=== PATIENT | male | born 1995 | race Caucasian/White ===

== ENCOUNTER 2019-09-24 12:10 | Day surgery (SDC) | payer OTHER ==
[~2019-09-24] VITALS: Ht 167.6 cm; Wt 76.6 kg
[2019-09-24 12:33] VITALS: BP 130/74; PULSE 72; TEMP 98
[2019-09-24 15:30] VITALS: BP 117/57; PULSE 74
--- NOTE | 2019-09-24 15:30 | NUR ---
Patient returns to room 7 per cart from PACU accompanied by Mercedes PHILLIP and is awake and alert. IV fluids infusing and site is free of redness. Temp 98.2 and room air sats 98%. Assisted up to the bathroom and gait steady.
[2019-09-24 15:45] VITALS: BP 115/63; PULSE 71
--- NOTE | 2019-09-24 15:45 | NUR ---
Patient returns to room after voiding bloody urine. States that it was more blood than urine. Resting on cart and IV fluids infusing at 150cc/hr. Eating muffin and drinking water. Friend in room.
[2019-09-24 15:53] VITALS: TEMP 97.1
[2019-09-24 16:00] VITALS: BP 123/58; PULSE 74
--- NOTE | 2019-09-24 16:00 | NUR ---
Tolerated muffin and water. Denies pain or nausea. IV fluids continue to infuse and will attempt to void again one more time prior to discharge.
[2019-09-24 16:15] VITALS: BP 123/77; PULSE 75
--- NOTE | 2019-09-24 16:15 | NUR ---
Assisted patient up to the bathroom. Gait steady.
--- NOTE | 2019-09-24 16:28 | NUR ---
Returns to room. Urine pink tinged with small clot noted. States that he was able to urinate more easily the second time but did strain some. Requests to go home and IV discontinued. Patient dresses self.
--- NOTE | 2019-09-24 16:40 | NUR ---
Dismissal instructions given and signed. Voices understanding of home cares. Patient is to rest the next three days and may return to full duty on Saturday. Instructed patient to call the office for increasing bleeding or unable to urinate.
--- NOTE | 2019-09-24 16:44 | NUR ---
Patient dismissed to home per private vehilce driven by friend and taken to the front door per wheelchair by this RN with instructions in hand and assisted into vehicle.
== END 2019-09-24 16:44 | disposition home or self-care (01) ==
LOC: SDCO 12:10
DX: C67.4 Malignant neoplasm of posterior wall of bladder (principal); F17.210 Nicotine dependence, cigarettes, uncomplicated
CPT/HCPCS: J0690; J1100; J1885; J2250; J2405; J2704; J3010; J7120; Q9967

== ENCOUNTER 2019-10-27 07:51 | Day surgery (SDC) | payer OTHER ==
[~2019-10-27] VITALS: Ht 175.3 cm; Wt 81.1 kg
[2019-10-27] VITALS (8 sets, daily range): BP systolic 107–131; BP diastolic 68–81; PULSE 57–95; TEMP 97.1–97.5
--- NOTE | 2019-10-27 09:00 | NUR ---
Patients father is here [place] and allowed to come to the patient's room with mask on and after performing hand hygine. Father instructed to stay in the room and keep mask on.
--- NOTE | 2019-10-27 09:30 | NUR ---
Dr. Brooks here and had a long talk with the patient and father prior to OR and all questions answered.
--- NOTE | 2019-10-27 11:00 | NUR ---
Returns to room 7 per cart from PACU accompanied by Sandy PHILLIP and is awake and alert. IV fluids infusing and site is free of redness. Siderails up x2 and call light in reach. Father in room. Patient is sipping on water.
--- NOTE | 2019-10-27 11:15 | NUR ---
Resting and talking on the phone. Denies pain or nausea.
--- NOTE | 2019-10-27 11:30 | NUR ---
Has been drinking water and talking on phone. Offers no complaints of pain or nausea.
--- NOTE | 2019-10-27 11:35 | NUR ---
Assisted up to the bathroom.
--- NOTE | 2019-10-27 11:45 | NUR ---
Returns to room and was unable to void. IV fluids continue to infuse.
--- NOTE | 2019-10-27 12:00 | NUR ---
Resting and eating muffin. Has been drinking water.
--- NOTE | 2019-10-27 12:30 | NUR ---
IV fluids infusing and has been drinking water.
--- NOTE | 2019-10-27 12:40 | NUR ---
Returns to the bathroom and was unable to urinate. Will continue to observe.
--- NOTE | 2019-10-27 13:00 | NUR ---
Resting and sipping on water.
--- NOTE | 2019-10-27 13:50 | NUR ---
Patient states that he is very uncomfortable to needing to urinate. Abdomen tight and slightly distended. Bladder scan done with greater than 500ml noted.
--- NOTE | 2019-10-27 14:02 | NUR ---
Telephone order received for Flomax 0.4mg and to straight cath x1 now.
--- NOTE | 2019-10-27 14:08 | NUR ---
Straight cath done with 800cc dark orange urine noted. Immediate relief of pain.
--- NOTE | 2019-10-27 14:17 | NUR ---
Flomax given as ordered.
--- NOTE | 2019-10-27 15:40 | NUR ---
States that he is feeling uncomfortable and having lower abdominal pain.
--- NOTE | 2019-10-27 15:45 | NUR ---
Medicated with Percocet 5mg one tab and attempted to contact Dr. Brooks for further instructions.
--- NOTE | 2019-10-27 16:00 | NUR ---
Patient continues to complain of needing to urinate without being able to. Attempting to contact Dr. Brooks for furhter instructions.
--- NOTE | 2019-10-27 16:20 | NUR ---
Order to place mcdonough and follow up in the office in two days for mcdonough removal received from Roney PHILLIP.
--- NOTE | 2019-10-27 16:25 | NUR ---
#16 mcdonough catheter placed to dependent drainage with immediate returns of naveen colored urine returns. Mcdonough cares given to patient and catheter secure on the left leg.
--- NOTE | 2019-10-27 16:55 | NUR ---
Dismissal instructions given and INT needle discontinued. Patient assisted with dressing.
--- NOTE | 2019-10-27 17:05 | NUR ---
Patient dismissed to home driven by father and taken to the front door per wheelchair and assisted into truck with dismissal instructions in hand.
== END 2019-10-27 17:05 | disposition home or self-care (01) ==
LOC: SDCO 07:51
DX: C67.4 Malignant neoplasm of posterior wall of bladder (principal); F17.210 Nicotine dependence, cigarettes, uncomplicated
CPT/HCPCS: A4314; J0690; J1100; J1170; J2405; J2704; J3010; J7120